=== PATIENT | male | born 1995 ===

== ENCOUNTER → 2019-05-08 | Outpatient (CLI) | payer OTHER ==
[2019-05-08 20:23] LABS: CHOL/HDL RATIO 2.4; Cholesterol 137 mg/dL (50-200); HDL Cholesterol 58 mg/dL (>39); LDL/HDL RATIO 1.1; Low Density Lipoprotein Chol 66 mg/dL (0-110); Triglycerides 64 mg/dL (30-140); Very Low Density Lipoprot Chol 12 mg/dL (6-28)
== END | disposition home or self-care (01) ==
LOC: LAB 19:16 → LAB SHORT 19:16
PROVIDERS: Nurse Practitioner Family
DX: Z00.129 Encounter for routine child health examination without abnormal findings (principal)
CPT/HCPCS: 80061